=== PATIENT | female | born 1970 | race Two or more races ===

== ENCOUNTER 2022-04-23 20:08 | Emergency (ER) | payer MEDICAID, OTHER ==
[~2022-04-23] VITALS: Ht 162.6 cm; Wt 112.0 kg
[2022-04-23 22:22] LABS: Basophils # (auto) 0 10 ^3/uL (0-0.2); Eosinophils # (auto) 0.1 10 ^3/uL (0-0.8); Hemoglobin 13.6 g/dL (12.2-16.2); Lymphocytes # (auto) 0.8 10 ^3/uL (0.4-5.4); Monocytes # (auto) 0.3 10 ^3/uL (0-1.3); Neutrophils # (auto) 1.6 10 ^3/uL (1.6-8.6); Red Blood Cells 5.17 10^6/uL (4.0-5.20); White Blood Cell 2.8 10^3/uL (4.4-10.8)
[2022-04-23 22:24] LABS: Basophils % (auto) 0.6 % (0.0-2.0); Eosinophils % (auto) 1.8 % (0.0-7.0); Hematocrit 41.6 % (36.0-46.0); Mean Corpuscular Hemoglobin 26.4 pg (28.0-32.0); Mean Corpuscular Hgb Conc. 32.8 g/dL (32.0-36.0); Mean Corpuscular Volume 80.5 fL (80.0-100.0); Monocytes % (auto) 11.5 % (0.0-12.0); Neutrophils % (auto) 57.1 % (37.0-80.0); Nucleated Red Blood Cells % 0.3 %; Red Cell Distribution Width 18.2 % (11.8-14.3)
[2022-04-23 22:55] LABS: Albumin 2.6 g/dL (3.4-5.0); Calcium 7.7 mg/dL (8.5-10.1); Potassium 4.2 mmol/L (3.5-5.1)
[2022-04-23 22:58] LABS: BUN/Creatinine Ratio 25.2; Bilirubin, Total 0.4 mg/dL (0.2-1.0); Total Protein 6.4 g/dL (6.4-8.2)
[2022-04-24 01:24] VITALS: BP 134/78
== END 2022-04-24 03:07 | disposition home or self-care (01) ==
LOC: ER 20:08
DX: J09.X2 Influenza due to identified novel influenza A virus with other respiratory manifestations (principal); I11.0 Hypertensive heart disease with heart failure; I50.9 Heart failure, unspecified; I25.2 Old myocardial infarction; E11.9 Type 2 diabetes mellitus without complications; J44.9 Chronic obstructive pulmonary disease, unspecified; K21.9 Gastro-esophageal reflux disease without esophagitis; E78.5 Hyperlipidemia, unspecified; Z95.0 Presence of cardiac pacemaker; Z20.822 Contact with and (suspected) exposure to COVID-19
CPT/HCPCS: 36415; 71045; 80053; 83880; 84484; 85025; 87804; 93005

== ENCOUNTER 2022-08-08 19:57 | Inpatient (IN) | payer MEDICAID ==
[~2022-08-08] VITALS: Ht 162.6 cm; Wt 108.6 kg
[~2022-08-08 19:57] MED LIST: FURO1TAB33 PO; INSLANTI SC
[2022-08-08 22:47] LABS: Basophils # (auto) 0.1 10 ^3/uL (0-0.2); Eosinophils # (auto) 0.7 10 ^3/uL (0-0.8); Eosinophils % (auto) 13.1 % (0.0-7.0); Hematocrit 39.2 % (36.0-46.0); Lymphocytes % (auto) 18.2 % (10.0-50.0); Mean Corpuscular Hgb Conc. 33.1 g/dL (32.0-36.0); Mean Corpuscular Volume 84.5 fL (80.0-100.0); Monocytes # (auto) 0.6 10 ^3/uL (0-1.3); Monocytes % (auto) 10.4 % (0.0-12.0); Neutrophils # (auto) 3.3 10 ^3/uL (1.6-8.6); Neutrophils % (auto) 57.3 % (37.0-80.0); Nucleated Red Blood Cells % 0.2 %; Red Blood Cells 4.64 10^6/uL (4.0-5.20); Red Cell Distribution Width 18.3 % (11.8-14.3); White Blood Cell 5.7 10^3/uL (4.4-10.8)
[2022-08-08 23:05] LABS: Partial Thromboplastin Time 29.5 sec (24.6-33.4)
[2022-08-08 23:07] LABS: BUN/Creatinine Ratio 26.9; Calcium 8.7 mg/dL (8.5-10.1)
[2022-08-09] MEDS ORDERED: HYDROcodone-ACET 5/325MG TAB PO PRN (03:00)
[2022-08-09] MEDS ORDERED: NITROGLYCERIN 0.4 MG SL TAB SL PRN (03:00)
[2022-08-09] MEDS ORDERED: DEXTROSE (50%) 50ML SYRG IV PRN (03:00)
[2022-08-09] MEDS ORDERED: MORPHINE SULFATE INJ 2 MG/ml SYRG IV PRN (03:00)
[2022-08-09 03:46] LABS: Basophils # (auto) 0.1 10 ^3/uL (0-0.2); Basophils % (auto) 1.3 % (0.0-2.0); Eosinophils # (auto) 0.6 10 ^3/uL (0-0.8); Eosinophils % (auto) 13.7 % (0.0-7.0); Hematocrit 39.3 % (36.0-46.0); Hemoglobin 13.1 g/dL (12.2-16.2); Lymphocytes # (auto) 0.9 10 ^3/uL (0.4-5.4); Lymphocytes % (auto) 20.2 % (10.0-50.0); Mean Corpuscular Hgb Conc. 33.2 g/dL (32.0-36.0); Mean Corpuscular Volume 84.5 fL (80.0-100.0); Monocytes # (auto) 0.4 10 ^3/uL (0-1.3); Neutrophils # (auto) 2.4 10 ^3/uL (1.6-8.6); Neutrophils % (auto) 54.8 % (37.0-80.0); Nucleated Red Blood Cells % 0.1 %; Red Blood Cells 4.66 10^6/uL (4.0-5.20); Red Cell Distribution Width 18.4 % (11.8-14.3); White Blood Cell 4.4 10^3/uL (4.4-10.8)
[2022-08-09 04:03] LABS: Albumin 3.3 g/dL (3.4-5.0); BUN/Creatinine Ratio 28.7; Calcium 8.5 mg/dL (8.5-10.1)
[2022-08-09 04:06] LABS: Bilirubin, Total 0.6 mg/dL (0.2-1.0); Total Protein 7.4 g/dL (6.4-8.2)
[2022-08-09 04:17] LABS: Potassium 2.8 mmol/L (3.5-5.1)
[2022-08-09] MEDS: SODIUM CHLOR 0.9% PF (SALINE LOCK) 10ML VIAL/SYR IV SCH ×3 (06:02→21:28)
[2022-08-09] MEDS: ACCU-CHEK COMFORT CURVE STRIP VI SCH ×4 (06:57→21:28)
[2022-08-09] MEDS: InsuLIN REG 1unit/0.01ml Soln (100units/ml) SC SCH ×4 (06:59→21:33)
[2022-08-09] MEDS: FUROSEMIDE 20 MG/2 ML VIAL IV SCH (11:18)
[2022-08-09] MEDS ORDERED: MORPHINE SULFATE 4 MG/ML SYR/VIAL IV PRN ×2 (14:15→15:00)
[2022-08-09] MEDS ORDERED: POTASSIUM CHL 20 Meq TABLET PO ONE (15:00)
[2022-08-09] MEDS ORDERED: ceFAZolin 1GM/50ML 50 ML IV ONE (15:00)
[2022-08-09] MEDS ORDERED: traMADol HCL 50 MG TAB PO PRN (15:00)
[2022-08-09] MEDS: HYDROmorphone HCL 2 MG/ML VL/or syr IV PRN ×2 (15:48→21:26)
[2022-08-09] MEDS: ATORVASTATIN 20 MG TAB PO SCH (21:27)
[2022-08-09] MEDS: hydrALAZINE HCL 25 MG TAB PO SCH (21:28)
[2022-08-09] MEDS: ceFAZolin 1GM/50ML 50 ML IV SCH (21:28)
[2022-08-09 22:00] VITALS: BP 132/75
[2022-08-09 22:29] LABS: Urine Bacteria FEW /hpf (None Seen); Urine Blood Negative /uL (Negative); Urine Hyaline Cast FEW /lpf (0 - 2); Urine Specific Gravity 1.009 (1.001-1.035); Urine WBC 1 /hpf (0 - 5)
[2022-08-10] VITALS (10 sets, daily range): BP systolic 101–158; BP diastolic 53–93
[2022-08-10] MEDS: HYDROmorphone HCL 2 MG/ML VL/or syr IV PRN ×4 (05:02→21:49)
[2022-08-10] MEDS: SODIUM CHLOR 0.9% PF (SALINE LOCK) 10ML VIAL/SYR IV SCH ×3 (05:32→21:34)
[2022-08-10] MEDS: ceFAZolin 1GM/50ML 50 ML IV SCH ×3 (05:32→21:34)
[2022-08-10 06:13] LABS: BUN/Creatinine Ratio 41.7; Calcium 8.4 mg/dL (8.5-10.1)
[2022-08-10 06:17] LABS: Hematocrit 38.3 % (36.0-46.0); Hemoglobin 12.8 g/dL (12.2-16.2); Mean Corpuscular Hemoglobin 27.9 pg (28.0-32.0); Mean Corpuscular Hgb Conc. 33.4 g/dL (32.0-36.0); Mean Corpuscular Volume 83.5 fL (80.0-100.0); Red Blood Cells 4.59 10^6/uL (4.0-5.20); Red Cell Distribution Width 18.2 % (11.8-14.3); White Blood Cell 4.9 10^3/uL (4.4-10.8)
[2022-08-10] MEDS: ACCU-CHEK COMFORT CURVE STRIP VI SCH ×4 (06:20→21:34)
[2022-08-10] MEDS: InsuLIN REG 1unit/0.01ml Soln (100units/ml) SC SCH ×4 (06:20→21:49)
[2022-08-10 06:32] LABS: Potassium 2.7 mmol/L (3.5-5.1)
[2022-08-10 06:38] LABS: Basophils % (manual) 0 (0.0-2.0); Blast Cells 0; Metamyelocytes % 0; Myelocytes % 0; Promyelocytes % 0; Reactive Lymphocytes 0
[2022-08-10] MEDS: ISOSORBIDE MONONITRATE ER 60 MG TAB PO SCH (10:00)
[2022-08-10] MEDS ORDERED: POTASSIUM CHL 20 Meq TABLET PO ONE (10:00)
[2022-08-10] MEDS ORDERED: POTASSIUM CHLORIDE 20 MEQ, LIDOCAINE 1% (LOCAL ANESTH.) 2 ML in SODIUM CHL 0.9% 100 ML IV ONE (10:00)
[2022-08-10] MEDS: FUROSEMIDE 20 MG/2 ML VIAL IV SCH ×2 (10:00→10:14)
[2022-08-10] MEDS: hydrALAZINE HCL 25 MG TAB PO SCH ×2 (10:00→21:48)
[2022-08-10] MEDS: ASPirin 81 mg TAB PO SCH (10:14)
[2022-08-10] MEDS ORDERED: IOHEXOL 350 MG/ML 100ML IJ ONE (12:42)
[2022-08-10] MEDS ORDERED: LIDOCAINE 2%HCL (LOCAL ANESTH.) INJ 20ML MDV ONE ×3 (12:42→14:05)
[2022-08-10] MEDS ORDERED: VANCOMYCIN HCL 1000 MG VL ONE (13:29)
[2022-08-10] MEDS ORDERED: fentaNYL CITRATE 100 MCG/2 ML VL ONE (13:30)
[2022-08-10] MEDS ORDERED: MIDAZOLAM HCL 2MG/2ML 2ml VIAL (1mg/ml) ONE ×2 (13:30→14:05)
[2022-08-10] MEDS ORDERED: VANCOMYCIN 1GM/250ML 250 ML IV ONE (13:30)
[2022-08-10] MEDS ORDERED: diphenhdrAMINE HCL 50 MG/1 ML VL ONE (13:50)
[2022-08-10] MEDS: ATORVASTATIN 20 MG TAB PO SCH (21:34)
[2022-08-11] MEDS: HYDROmorphone HCL 2 MG/ML VL/or syr IV PRN ×4 (03:33→19:30)
[2022-08-11 05:00] VITALS: BP 129/63
[2022-08-11] MEDS: ceFAZolin 1GM/50ML 50 ML IV SCH (05:06)
[2022-08-11] MEDS: SODIUM CHLOR 0.9% PF (SALINE LOCK) 10ML VIAL/SYR IV SCH ×3 (05:06→21:10)
[2022-08-11] MEDS ORDERED: VANCOMYCIN 1GM/250ML 250 ML IV ONE (06:00)
[2022-08-11] MEDS: InsuLIN REG 1unit/0.01ml Soln (100units/ml) SC SCH ×4 (06:22→23:15)
[2022-08-11] MEDS: ACCU-CHEK COMFORT CURVE STRIP VI SCH ×4 (06:23→23:15)
[2022-08-11 06:25] LABS: Basophils # (auto) 0 10 ^3/uL (0-0.2); Basophils % (auto) 0.7 % (0.0-2.0); Eosinophils # (auto) 0.8 10 ^3/uL (0-0.8); Hematocrit 38.2 % (36.0-46.0); Hemoglobin 12.9 g/dL (12.2-16.2); Lymphocytes # (auto) 0.8 10 ^3/uL (0.4-5.4); Lymphocytes % (auto) 14.3 % (10.0-50.0); Mean Corpuscular Hemoglobin 28.4 pg (28.0-32.0); Mean Corpuscular Hgb Conc. 33.6 g/dL (32.0-36.0); Mean Corpuscular Volume 84.5 fL (80.0-100.0); Monocytes # (auto) 0.6 10 ^3/uL (0-1.3); Monocytes % (auto) 9.8 % (0.0-12.0); Neutrophils # (auto) 3.5 10 ^3/uL (1.6-8.6); Neutrophils % (auto) 61.6 % (37.0-80.0); Nucleated Red Blood Cells % 0.2 %; Red Blood Cells 4.53 10^6/uL (4.0-5.20); Red Cell Distribution Width 18.2 % (11.8-14.3); White Blood Cell 5.7 10^3/uL (4.4-10.8)
[2022-08-11 06:42] LABS: Calcium 8.7 mg/dL (8.5-10.1)
[2022-08-11 06:44] LABS: Potassium 2.8 mmol/L (3.5-5.1)
[2022-08-11 06:51] LABS: BUN/Creatinine Ratio 44.9
[2022-08-11 07:17] LABS: Eosinophils % (auto) 13.6 % (0.0-7.0)
[2022-08-11 09:00] VITALS: BP 118/72
[2022-08-11] MEDS: ISOSORBIDE MONONITRATE ER 60 MG TAB PO SCH (09:39)
[2022-08-11] MEDS: FUROSEMIDE 20 MG/2 ML VIAL IV SCH (09:39)
[2022-08-11] MEDS: hydrALAZINE HCL 25 MG TAB PO SCH ×2 (09:40→21:10)
[2022-08-11] MEDS: ASPirin 81 mg TAB PO SCH (09:40)
[2022-08-11] MEDS ORDERED: POTASSIUM CHL 20 Meq TABLET PO ONE ×2 (10:00→12:15)
[2022-08-11] MEDS ORDERED: POTASSIUM CHLORIDE 20 MEQ, LIDOCAINE 1% (LOCAL ANESTH.) 2 ML in SODIUM CHL 0.9% 100 ML IV ONE (10:00)
[2022-08-11 13:00] VITALS: BP 143/79
[2022-08-11] MEDS: CEPHALEXIN 250 MG CAP PO SCH ×2 (14:02→21:11)
[2022-08-11 14:36] LABS: BUN/Creatinine Ratio 35.9; Calcium 8.4 mg/dL (8.5-10.1); Magnesium 2.5 mg/dL (1.6-2.6)
[2022-08-11 17:00] VITALS: BP 120/57
[2022-08-11 22:00] VITALS: BP 113/51
[2022-08-11] MEDS: ATORVASTATIN 20 MG TAB PO SCH (22:00)
[2022-08-12] MEDS: HYDROmorphone HCL 2 MG/ML VL/or syr IV PRN ×3 (00:40→09:50)
[2022-08-12 05:00] VITALS: BP 111/65
[2022-08-12] MEDS: SODIUM CHLOR 0.9% PF (SALINE LOCK) 10ML VIAL/SYR IV SCH (05:31)
[2022-08-12] MEDS: CEPHALEXIN 250 MG CAP PO SCH (06:00)
[2022-08-12] MEDS: ACCU-CHEK COMFORT CURVE STRIP VI SCH ×2 (06:00→11:30)
[2022-08-12 06:12] LABS: BUN/Creatinine Ratio 43.9; Calcium 8.4 mg/dL (8.5-10.1); Potassium 3.3 mmol/L (3.5-5.1)
[2022-08-12] MEDS: InsuLIN REG 1unit/0.01ml Soln (100units/ml) SC SCH ×2 (06:12→11:30)
[2022-08-12 08:00] VITALS: BP 140/73
[2022-08-12 08:45] VITALS: BP 140/73
[2022-08-12] MEDS: ISOSORBIDE MONONITRATE ER 60 MG TAB PO SCH (09:48)
[2022-08-12] MEDS: hydrALAZINE HCL 25 MG TAB PO SCH (09:48)
[2022-08-12] MEDS: FUROSEMIDE 20 MG/2 ML VIAL IV SCH (09:50)
[2022-08-12] MEDS: ASPirin 81 mg TAB PO SCH (09:56)
[2022-08-12] MEDS ORDERED: POTASSIUM CHL 20 Meq TABLET PO ONE (10:15)
[2022-08-12] MEDS ORDERED: FURO1TAB31 PO (10:27)
[2022-08-12] MEDS ORDERED: ISO60SRT PO (10:27)
[2022-08-12] MEDS ORDERED: POTA-180 PO (10:27)
[2022-08-12] MEDS ORDERED: HYDR25TA87 PO (10:27)
[2022-08-12] MEDS ORDERED: ASPI-325 PO (10:27)
[2022-08-12] MEDS ORDERED: ATOR20TA50 PO (10:27)
[2022-08-12] MEDS ORDERED: CEPH250C28 PO (10:27)
[2022-08-12 11:21] VITALS: BP 140/73
== END 2022-08-12 12:30 | disposition home or self-care (01) | DRG 179 ==
LOC: ER 20:03 → TELE 08-09 02:59 → TELE-CENTR 08-09 20:33
PROVIDERS: ADMIT Specialist; ATTEND Internal Medicine
PROC: 02PA0MZ Removal of Cardiac Lead from Heart, Open Approach (ICD-10-PCS; principal; 2022-08-10)
PROC: 0JH609Z Insertion of Cardiac Resynchronization Defibrillator Pulse Generator into Chest Subcutaneous Tissue and Fascia, Open Approach (ICD-10-PCS; 2022-08-10)
PROC: 02H63KZ Insertion of Defibrillator Lead into Right Atrium, Percutaneous Approach (ICD-10-PCS; 2022-08-10)
PROC: 02HL3KZ Insertion of Defibrillator Lead into Left Ventricle, Percutaneous Approach (ICD-10-PCS; 2022-08-10)
PROC: 02HK3KZ Insertion of Defibrillator Lead into Right Ventricle, Percutaneous Approach (ICD-10-PCS; 2022-08-10)
DX: I13.0 Hypertensive heart and chronic kidney disease with heart failure and stage 1 through stage 4 chronic kidney disease, or unspecified chronic kidney disease (principal); N17.0 Acute kidney failure with tubular necrosis; I50.23 Acute on chronic systolic (congestive) heart failure; I42.9 Cardiomyopathy, unspecified; E11.22 Type 2 diabetes mellitus with diabetic chronic kidney disease; N18.30 Chronic kidney disease, stage 3 unspecified; I25.10 Atherosclerotic heart disease of native coronary artery without angina pectoris; J44.9 Chronic obstructive pulmonary disease, unspecified; Z20.822 Contact with and (suspected) exposure to COVID-19; E87.6 Hypokalemia; E66.9 Obesity, unspecified; E78.5 Hyperlipidemia, unspecified; Z95.5 Presence of coronary angioplasty implant and graft; Z86.73 Personal history of transient ischemic attack (TIA), and cerebral infarction without residual deficits; Z95.810 Presence of automatic (implantable) cardiac defibrillator; Z79.899 Other long term (current) drug therapy; Z68.41 Body mass index [BMI] 40.0-44.9, adult; Z79.82 Long term (current) use of aspirin; I25.2 Old myocardial infarction
CPT/HCPCS: 36415; 71045; 71046; 76775; 80048; 80053; 81001; 82962; 83036; 83735; 84100; 85007; 85025; 85027; 85610; 85730; 93005; 96365; 96372; 96375; 99152; 99153; C1882; G0378; J0690; J1815; J2001; J2250

== ENCOUNTER 2023-03-09 09:19 | Emergency (ER) | payer MEDICAID ==
[~2023-03-09] VITALS: Ht 162.6 cm; Wt 113.1 kg
[~2023-03-09 09:19] MED LIST changes: +ASPI-325 PO; +ATOR20TA50 PO; +CEPH250C28 PO; +FURO1TAB31 PO; +HYDR25TA87 PO; +ISO60SRT PO; +POTA-180 PO
[2023-03-09 09:56] VITALS: BP 137/75
[2023-03-09] MEDS ORDERED: HYDROcodone-ACET 10/325MG TAB PO ONE (10:45)
[2023-03-09] MEDS ORDERED: HYDR-4798 PO (11:13)
== END 2023-03-09 11:28 | disposition home or self-care (01) ==
LOC: ER 09:19
DX: M17.11 Unilateral primary osteoarthritis, right knee (principal); S80.02XA Contusion of left knee, initial encounter; S80.01XA Contusion of right knee, initial encounter; I11.0 Hypertensive heart disease with heart failure; I50.9 Heart failure, unspecified; J44.9 Chronic obstructive pulmonary disease, unspecified; E11.9 Type 2 diabetes mellitus without complications; Z86.73 Personal history of transient ischemic attack (TIA), and cerebral infarction without residual deficits; W18.39XA Other fall on same level, initial encounter; Y93.89 Activity, other specified; Y92.89 Other specified places as the place of occurrence of the external cause; Y99.8 Other external cause status
CPT/HCPCS: 29505; 73130; 73562

== ENCOUNTER 2025-02-09 14:52 | Emergency (ER) | payer MEDICAID ==
[~2025-02-09] VITALS: Ht 162.6 cm; Wt 109.0 kg
[~2025-02-09 14:52] MED LIST changes: +CEPH250C2 PO; -CEPH250C28 PO; +HYDR-4798 PO
[2025-02-09 15:46] LABS: Basophils # (auto) 0 10 ^3/uL (0-0.2); Eosinophils # (auto) 0.2 10 ^3/uL (0-0.8); Hemoglobin 12.5 g/dL (12.2-16.2); Lymphocytes # (auto) 0.8 10 ^3/uL (0.4-5.4); Monocytes # (auto) 0.4 10 ^3/uL (0-1.3); Red Cell Distribution Width 17.6 % (11.8-14.3)
[2025-02-09 15:49] LABS: Alanine Aminotransferase 13 U/L (7-40); Albumin 3.9 g/dL (3.2-4.8); Anion Gap 9 (5-15); Aspartate Aminotransferase 13 U/L (13-40); BUN/Creatinine Ratio 21.1 (10.0-20.0); Basophils % (auto) 0.5 % (0.0-2.0); Bilirubin, Total 0.8 mg/dL (0.2-1.0); Calcium 9.5 mg/dL (8.7-10.4); Carbon Dioxide 27 mmol/L (20-31); Chloride 99 mmol/L (98-107); Eosinophils % (auto) 4.6 % (0.0-7.0); Hematocrit 39.5 % (36.0-46.0); Lymphocytes % (auto) 15.1 % (10.0-50.0); Mean Corpuscular Hemoglobin 24.9 pg (28.0-32.0); Mean Corpuscular Hgb Conc. 31.6 g/dL (32.0-36.0); Mean Corpuscular Volume 78.9 fL (80.0-100.0); Monocytes % (auto) 7.3 % (0.0-12.0); Neutrophils # (auto) 3.9 10 ^3/uL (1.6-8.6); Neutrophils % (auto) 72.5 % (37.0-80.0); Nucleated Red Blood Cells % 0.1 %; Platelet Count (auto) 197 10^3/uL (140-450); Potassium 4.5 mmol/L (3.5-5.1); Red Blood Cells 5.01 10^6/uL (4.0-5.20); Total Protein 7.1 g/dL (5.7-8.2); White Blood Cell 5.4 10^3/uL (4.4-10.8)
--- NOTE | 2025-02-09 16:06 | DVH ---
Procedure: CT CT L FOOT WO CONTRAST 02/09/2025 03:17 PM Indication: foot wound Comparison Study: None Technique: Axial images left foot were obtained and reformatted in coronal and sagittal planes. All C T scans at this medical facility are performed using dose modulation techniques as appropriate to a p erformed exam including the following: Automated exposure control was utilized; adjustment of the MA and/or KV according to patient size; and use of iterative reconstruction technique. CT Dose: CTDI vol ume is 7.75 mGy. Dose-length product is 275.88 mGy*cm FINDINGS: Great toe amputation at the level of mid metatarsal. Diffuse subcutaneous edema dorsum of the foot a nd over the ankle/lower leg noted. Plantar musculature fatty atrophy. No cortical erosion or lytic os seous lesion noted. A subcentimeter osseous density seen adjacent to the tip of the medial malleolus reflecting an age-indeterminate avulsion fracture, likely chronic. Arterial calcification noted. No d rainable fluid collection is seen in this limited unenhanced study. IMPRESSION: 1. Diffuse subcutaneous edema. No drainable fluid collection, soft tissue gas, foreign body or eviden ce of osteomyelitis.
[2025-02-09 16:21] LABS: Alkaline Phosphatase 151 U/L (46-116); Blood Urea Nitrogen 35 mg/dL (9-23); Glucose 355 mg/dL (74-106); Sodium 135 mmol/L (136-145)
[2025-02-09] MEDS ORDERED: CLIN1CAP70 PO (16:50)
--- NOTE | 2025-02-09 16:51 | ED.PDOC ---
Musculoskeletal HPI Comments 54-year-old female complaining of wound to her left 2nd and 3rd toe. States she was stubbed her toe over a week ago. Says she was started noticing small flu- like blisters on her tip of her toes. Home health nurse came by and advised her should follow up in the emergency department because it was a black crusting on the 2nd toe. Patient reports having recurrent history of osteomyelitis and gangrene. Had left foot 1st toe amputated six months ago. Chief Complaint: Wound Check Time Seen by MD: 14:55 Primary Care Provider: unknown Reviewed Notes: Nurses Notes Allergies: Coded Allergies: Latex (Verified Allergy, Unknown, 04/23/22) Uncoded Allergies: TAPE (Allergy, Severe, 04/23/22) Home Meds Active Scripts Hydrocodone-Acetaminophen (Hydrocodone Bitartrate/AC 10-325 mg) 1 Tab Tab, 1 TAB PO BID, #10 TAB Prov:JACLYN SALDAÑA 03/09/23 Potassium Chloride (Potassium Chloride ER) 20 Meq Tab, 20 MEQ PO DAILY for 30 Days, #30 TAB 3 Refills Prov:MICHAEL QUIROS MD 08/12/22 Atorvastatin Calcium (ATORVASTATIN CALCIUM) 20 Mg Tab, 20 MG PO HS for 30 Days, #30 TAB 3 Refills Prov:MICHAEL QUIROS MD 08/12/22 Furosemide (Lasix) 40 Mg Tab, 40 MG PO QAM, #30 TAB 3 Refills Prov:MICHAEL QUIROS MD 08/12/22 Isosorbide Mononitrate (Isosorbide Mononitrate ER) 60 Mg Tab, 30 MG PO DAILY for 30 Days, #15 TAB 3 Refills Prov:MICHAEL QUIROS MD 08/12/22 Hydralazine HCl (Hydralazine HCl) 25 Mg Tab, 50 MG PO BID for 30 Days, #120 TAB 3 Refills Prov:MICHAEL QUIROS MD 08/12/22 Cephalexin Base (Cephalexin) 250 Mg Cap, 500 MG PO TID for 7 Days, #21 CAP Prov:MICHAEL QUIROS MD 08/12/22 Aspirin (Aspirin Low Dose) 81 Mg Tab, 81 MG PO DAILY for 30 Days, #30 TAB 3 Refills Prov:MICHAEL QUIROS MD 08/12/22 Reported Medications Insulin Glargine (Lantus) 100 Unit/Ml Inj, 15 UNIT SC HS, INJ 05/18/22 Furosemide (Lasix) 20 Mg Tb, 1 TAB PO DAILY, #90 TAB 1 Refill 05/18/22 Information Source: Patient Mode of Arrival: Wheelchair Past Medical History PAST MEDICAL HISTORY: CAD, CHF, COPD, CVA, DM, HTN, [place] Surgical History: , Pacemaker PHYSICAL MEDICINE PHYSICIAN History: No Pertinent PHYSICAL MEDICINE PHYSICIAN History Family History Family History: Reviewed,noncontributory to illness Social History Smoker: Non-Smoker Alcohol: Denies ETOH Use Drugs: Denies Drug Use Lives In: Home Constitutional: denies: chills, diaphoresis, fatigue, fever, malaise, sweats, weakness, others EENTM: denies: blurred vision, double vision, ear bleeding, ear discharge, ear drainage, ear pain, ear ringing, eye pain, eye redness, hearing loss, mouth pain, mouth swelling, nasal discharge, nose bleeding, nose congestion, nose pain, photophobia, tearing, throat pain, throat swelling, voice changes, others Respiratory: denies: cough, hemoptysis, orthopnea, SOB at rest, shortness of breath, SOB with excertion, stridor, wheezing, others Cardiovascular: denies: chest pain, dizzy spells, diaphoresis, Dyspnea on exertion, edema, irregular heart beat, left arm pain, lightheadedness, palpitations, PND, syncope, others Genitourinary: denies: abnormal vagina bleeding, burning, dyspareunia, dysuria, flank pain, frequency, hematuria, incontinence, pain, , vagina discharge, urgency, others Neurological: denies: dizziness, fainting, headache, left sided numbness, left sided weakness, numbness, paresthesia, pre-existing deficit, right sided numbness, right sided weakness, seizure, speech problems, tingling, tremors, weakness, others Musculoskeletal: denies: back pain, gout, joint pain, joint swelling, muscle pain, muscle stiffness, neck pain, others Integumetry: reports: wounds; denies: bruises, change in color, change in hair /nails, dryness, laceration, lesions, lumps, rash, others Physical Exam General Appearance: No Apparent Distress, Normal HEENT: Normal ENT Inspection, Pharynx Normal, TMs Normal Neck: Full Range of Motion, Non-Tender, Normal, Normal Inspection Respiratory: Chest Non-Tender, Lungs Clear, No Accessory Muscle Use, No Respiratory Distress, Normal Breath Sounds Cardiovascular: No Edema, No JVD, No Murmur, No Gallop, Normal Peripheral Pulses, Regular Rate/Rhythm Breast Exam: Deferred Gastrointestinal: No Organomegaly, Non Tender, No Pulsatile Mass, Normal Bowel Sounds, Soft Genitalia: Deferred Pelvic: Deferred Rectal: Deferred Extremities: No calf tenderness, Normal capillary refill, Normal inspection, Normal range of motion, Non-tender, No pedal edema Musculoskeletal : Apperance: Normal Neurologic: Alert, material processor II-XII nml as Tested, No Motor Deficits, Normal Affect, Normal Mood, No Sensory Deficits Cerebellar Function: Normal Reflexes: Normal Skin: Dry, Normal Color, Warm, Wounds (Small black eschar noted on the tip of the left foot 2nd toe. Surrounding tissue erythemic. Small blood blister noted on the left foot 3rd toe intact.) Lymphatic: No Adenopathy Was a procedure done? Was a procedure done?: No Differential Diagnosis EXT Differential Diagnosis: Cellulitis, Sprain, Dislocation X-Ray, Labs, Meds, VS Vital Signs Date Time Temp Pulse Resp B/P (MAP) Pulse Ox O2 Delivery O2 Flow Rate FiO2 02/09/25 15:05 98.3 81 16 135/63 (87) 91 98.3 02/09/25 14:57 98.3 81 16 135/63 (87) 91 98.3 02/09/25 14:57 81 16 91 Room Air Lab Test 02/09/25 15:16 Range/Units White Blood Count 5.4 4.4-10.8 10^3/uL Red Blood Count 5.01 4.0-5.20 10^6/uL Hemoglobin 12.5 12.2-16.2 g/dL Hematocrit 39.5 36.0-46.0 % Mean Corpuscular Volume 78.9 L 80.0-100.0 fL Mean Corpuscular Hemoglobin 24.9 L 28.0-32.0 pg Mean Corpuscular Hemoglobin Concent 31.6 L 32.0-36.0 g/dL Red Cell Distribution Width 17.6 H 11.8-14.3 % Platelet Count 197 140-450 10^3/uL Mean Platelet Volume 8.8 6.9-10.8 fL Neutrophils (%) (Auto) 72.5 37.0-80.0 % Lymphocytes (%) (Auto) 15.1 10.0-50.0 % Monocytes (%) (Auto) 7.3 0.0-12.0 % Eosinophils (%) (Auto) 4.6 0.0-7.0 % Basophils (%) (Auto) 0.5 0.0-2.0 % Neutrophils # (Auto) 3.9 1.6-8.6 10 ^3/uL Lymphocytes # (Auto) 0.8 0.4-5.4 10 ^3/uL Monocytes # (Auto) 0.4 0-1.3 10 ^3/uL Eosinophils # (Auto) 0.2 0-0.8 10 ^3/uL Basophils # (Auto) 0 0-0.2 10 ^3/uL Nucleated Red Blood Cells 0.1 % Sodium Level 135 L 136-145 mmol/L Potassium Level 4.5 3.5-5.1 mmol/L Chloride Level 99 98-107 mmol/L Carbon Dioxide Level 27 20-31 mmol/L Anion Gap 9 5-15 Blood Urea Nitrogen 35 H 9-23 mg/dL Creatinine 1.66 H 0.550-1.02 mg/dL Glomerular Filtration Rate Calc 36 >90 mL/min BUN/Creatinine Ratio 21.1 H 10.0-20.0 Serum Glucose 355 H 74-106 mg/dL Lactic Acid Level 1.2 0.4-2.0 mmol/L Calcium Level 9.5 8.7-10.4 mg/dL Total Bilirubin 0.8 0.2-1.0 mg/dL Aspartate Amino Transferase (AST) 13 13-40 U/L Alanine Aminotransferase (ALT) 13 7-40 U/L Alkaline Phosphatase 151 H 46-116 U/L Total Protein 7.1 5.7-8.2 g/dL Albumin 3.9 3.2-4.8 g/dL X-Ray, Labs, Meds, VS Comment Imaging: X-rays and CT scans were reviewed and interpreted by this provider, imaging shows no fractures and no pathological disease. Pending radiology review. Laboratory: Labs reviewed and interpreted by this provider. No significant abnormalities noted. Patient has prior medical visits reviewed. Med reconciliation performed Vital signs reviewed Time of 1ST Reevaluation: 16:51 Reevaluation 1ST: Improved Patient Education/Counseling: Diagnosis, Treatment, Need For Follow Up (Follow up in two days for wound recheck.) Family Education/Counseling: Diagnosis, Treatment Departure 1 Departure Time of Disposition: 16:50 Impression: Primary Impression: Cellulitis Qualified Codes: L03.032 - Cellulitis of left toe Disposition: HOME / SELF CARE / HOMELESS Condition: Fair e-Prescriptions Clindamycin Hcl (Clindamycin Hcl) 300 Mg Cap 300 MG PO QID for 10 Days, #40 CAP Prov: ARLENE COMBS 02/09/25 Discharged With: Self Critical Care Note Critical Care Time?: No Stability Stability form required: No Heart Score Heart Score: Heart Score Response (Comments) Value History N/A 0 EKG N/A 0 Age N/A 0 Risk Factors N/A 0 Troponin N/A 0 Total 0 ARLENE COMBS Feb 09, 2025 16:51
[2025-02-09 17:00] VITALS: BP 124/68; PULSE 75; RESP 20; TEMP 98.1; O2SAT 96
== END 2025-02-09 17:00 | disposition home or self-care (01) ==
LOC: ER 14:52
DX: L03.032 Cellulitis of left toe (principal); E11.9 Type 2 diabetes mellitus without complications; I11.0 Hypertensive heart disease with heart failure; I50.9 Heart failure, unspecified; I25.10 Atherosclerotic heart disease of native coronary artery without angina pectoris; J44.9 Chronic obstructive pulmonary disease, unspecified; I21.9 Acute myocardial infarction, unspecified; Z86.73 Personal history of transient ischemic attack (TIA), and cerebral infarction without residual deficits; Z79.82 Long term (current) use of aspirin; Z79.899 Other long term (current) drug therapy; Z95.0 Presence of cardiac pacemaker; Z98.890 Other specified postprocedural states; Z91.040 Latex allergy status
CPT/HCPCS: 36415; 73700; 80053; 83605; 85025